=== PATIENT | female | born 1995 | race Caucasian/White ===

== ENCOUNTER 2017-04-13 19:41 | Emergency (ER) | payer MEDICAID ==
[~2017-04-13] VITALS: Ht 157.5 cm; Wt 65.9 kg
[2017-04-13] MEDS ORDERED: CARBAMIDE PEROXIDE 6.5% 15 ML OTIC SOLUTION AD ONE (20:45)
[2017-04-13] MEDS ORDERED: CYCLOBENZAPRINE HCL 10 MG TABLET PO ONE (21:30)
[2017-04-13] MEDS ORDERED: IBUPROFEN 600 MG TABLET PO ONE (21:30)
[2017-04-13 22:11] VITALS: BP 125/75
== END 2017-04-13 22:13 | disposition home or self-care (01) ==
LOC: EMS 19:43
DX: M54.5 Low back pain (principal); H61.21 Impacted cerumen, right ear
CPT/HCPCS: 69209; 99283

== ENCOUNTER 2018-11-27 14:21 | Emergency (ER) | payer MEDICAID ==
[~2018-11-27] VITALS: Ht 157.5 cm; Wt 69.1 kg
[2018-11-27] MEDS ORDERED: HYDROGEN PEROXIDE 118 ML SOLUTION TP ONE (16:00)
[2018-11-27] MEDS ORDERED: IBUPROFEN 600 MG TABLET PO ONE (16:00)
[2018-11-27] MEDS ORDERED: BACITRACIN 0.9 GM PACKET OINTMENT TP ONE (16:00)
[2018-11-27 17:06] VITALS: BP 131/85
[2018-11-27] MEDS ORDERED: PERTUSS(ACELL),DIPH,TET VAC/PF 0.5 ML VIAL IM ONE (17:15)
== END 2018-11-27 17:30 | disposition home or self-care (01) ==
LOC: EMS 14:22
DX: S46.812A Strain of other muscles, fascia and tendons at shoulder and upper arm level, left arm, initial encounter (principal); S60.511A Abrasion of right hand, initial encounter; F17.210 Nicotine dependence, cigarettes, uncomplicated; F12.90 Cannabis use, unspecified, uncomplicated; V00.131A Fall from skateboard, initial encounter; Y93.51 Activity, roller skating (inline) and skateboarding; Y92.89 Other specified places as the place of occurrence of the external cause; Y99.8 Other external cause status
CPT/HCPCS: 90471; 90715; 99406

== ENCOUNTER 2021-04-19 01:08 | Emergency (ER) | payer MEDICAID ==
[~2021-04-19] VITALS: Ht 157.5 cm; Wt 73.6 kg
[2021-04-19 01:14] VITALS: BP 117/82
[2021-04-19] MEDS ORDERED: LORazepam 1 MG TABLET PO ONE (02:00)
[2021-04-19 03:06] LABS: COVID AG,FIA SOURCE NASOPHARYNGEAL
== END 2021-04-19 03:37 | disposition home or self-care (01) ==
LOC: EMS 01:09
DX: U07.1 COVID-19 (principal); F41.9 Anxiety disorder, unspecified; R07.89 Other chest pain; F12.90 Cannabis use, unspecified, uncomplicated; F17.210 Nicotine dependence, cigarettes, uncomplicated
CPT/HCPCS: 81025; 87426; 93005; 99284; U0003; Z7502; Z7610

== ENCOUNTER 2022-04-22 23:53 | Emergency (ER) | payer MEDICAID ==
[~2022-04-22] VITALS: Ht 165.1 cm; Wt 80.0 kg
[2022-04-23] MEDS ORDERED: ALBUTEROL SULFATE HFA 90 MCG/PUFF 8 GM INHALER IH ONE (00:15)
[2022-04-23 00:40] LABS: COVID AG,FIA SOURCE NASAL SWAB
[2022-04-23 01:01] LABS: INFLUENZA TYPE A NEGATIVE FOR TYPE A (NEGATIVE); INFLUENZA TYPE B NEGATIVE FOR TYPE B (NEGATIVE)
[2022-04-23] MEDS ORDERED: ALBUTEROL SULFATE 2.5 MG/0.5 ML NEB SOLUTION NEB ONE (02:45)
[2022-04-23] MEDS ORDERED: IPRATROPIUM BROMIDE 0.5 MG/2.5 ML NEB SOLUTION NEB ONE (02:45)
[2022-04-23] MEDS ORDERED: BENZONATATE 100 MG CAPSULE PO ONE (02:45)
[2022-04-23] MEDS ORDERED: BENZ-70 PO (03:55)
[2022-04-23] MEDS ORDERED: AZIT250T9 PO (03:55)
[2022-04-23 04:14] VITALS: BP 128/78
== END 2022-04-23 04:16 | disposition home or self-care (01) ==
LOC: EMS 23:54
DX: J18.0 Bronchopneumonia, unspecified organism (principal); J98.01 Acute bronchospasm; F41.9 Anxiety disorder, unspecified; E05.90 Thyrotoxicosis, unspecified without thyrotoxic crisis or storm; F17.210 Nicotine dependence, cigarettes, uncomplicated; F12.90 Cannabis use, unspecified, uncomplicated; Z90.89 Acquired absence of other organs; Z20.822 Contact with and (suspected) exposure to COVID-19
CPT/HCPCS: 71045; 87420; 87804; 94640; 99285; J3535; J7613

== ENCOUNTER 2022-04-29 20:17 | Emergency (ER) | payer MEDICAID ==
[~2022-04-29] VITALS: Ht 154.9 cm; Wt 96.8 kg
[~2022-04-29 20:17] MED LIST: AZIT250T9 PO; BENZ-227 PO
[2022-04-29 20:28] VITALS: BP 138/85
== END 2022-04-29 21:45 | disposition left against medical advice (07) ==
LOC: EMS 20:18
DX: R45.6 Violent behavior (principal); Z53.21 Procedure and treatment not carried out due to patient leaving prior to being seen by health care provider